=== PATIENT | female | born 1950 | race Two or more races ===

== ENCOUNTER 2022-04-18 20:29 | Outpatient (CLI) | payer MEDICARE, OTHER | END 2022-04-18 20:30 | disposition critical access hospital (66) | LOC: EMS 20:29 | DX: R42 Dizziness and giddiness (principal); R11.2 Nausea with vomiting, unspecified; R51.9 Headache, unspecified; F41.9 Anxiety disorder, unspecified | CPT/HCPCS: A0425; A0427 ==

== ENCOUNTER 2022-04-18 20:53 | Emergency (ER) | payer MEDICARE, OTHER ==
--- NOTE | 2022-04-18 21:31 | ED Physician Documentation ---
PD HPI HEADACHE - Stated complaint Stated Complaint: VERTIGO/HERRON - Chief complaint Chief Complaint: Neuro - Additional information Additional information: Patient is 71-year-old female presenting today with chief complaint of dizziness and headache. His symptoms began earlier today. Reports has had brief intermittent episodes of similar symptoms but never ones that are this persistent. Endorses for history of migraine headache disorder. Denies any recent upper respiratory tract infections, tinnitus, hearing loss, changes in medications. Denies any focal or lateralizing neurologic deficits. Review of Systems Ten Systems: 10 systems reviewed and negative Neurologic: reports: Headache, Other (Dizzy) PD PAST MEDICAL HISTORY - Present Medications Home Medications: Ambulatory Orders Medication Instructions Recorded Confirmed Meclizine HCl [Antivert] 25 mg PO TID #30 tab.chew 04/18/22 - Allergies Allergies/Adverse Reactions: Allergies Allergy/AdvReac Type Severity Reaction Status Date / Time Penicillins Allergy Hives Verified 04/18/22 21:01 PD ED PE NORMAL - Vitals Vital signs reviewed: Yes - General General: Alert and oriented X 3 - HEENT HEENT: Atraumatic - Neck Neck: Supple, no meningeal sign - Cardiac Cardiac: RRR - Respiratory Respiratory: No respiratory distress - Abdomen Abdomen: Normal bowel sounds - Female Female : Deferred - Rectal Rectal: Deferred - Derm Derm: Normal color - Extremities Extremities: No deformity - Neuro Neuro: Alert and oriented X 3, 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, No motor deficit, No sensory deficit, Normal speech, Other (Elicitable leftward horizontal nystagmus.) Results - Vitals Vitals: Vital Signs - 24 hr 04/18/22 04/18/22 21:01 21:11 Temperature 36.5 C 36.5 C Heart Rate 74 74 Respiratory 16 16 Rate Blood Pressure 160/80 H 160/80 H O2 Saturation 98 98 Oxygen O2 Source Room air - EKG (time done) 2133 Rate: Rate (enter#) (72) Rhythm: NSR [place]: Normal Intervals: Normal NE QRS: Normal Ischemia: Normal ST segments Computer interpretation: Disagree with computer - Labs Labs: Laboratory Tests 04/18/22 04/18/22 04/18/22 21:40 21:40 21:40 WBC 6.1 RBC 4.96 Hgb 13.3 Hct 41.4 MCV 83.5 MCH 26.8 L MCHC 32.1 RDW 12.0 Plt Count 202 MPV 11.1 H Neut # (Auto) 3.8 Lymph # (Auto) 1.8 [place] # (Auto) 0.4 Eos # (Auto) 0.1 Baso # (Auto) 0.0 Absolute Nucleated RBC 0.00 Nucleated RBC % 0.0 PT 10.7 INR 0.9 Sodium 141 Potassium 3.9 Chloride 102 Carbon Dioxide 27 Anion Gap 12.0 BUN 17 Creatinine 1.1 H Estimated GFR (MDRD) 49 L Glucose 149 H Lactic Acid Calcium 9.3 Magnesium 2.2 Total Bilirubin 0.5 AST 21 ALT 18 Alkaline Phosphatase 60 Total Protein 7.1 Albumin 4.3 Globulin 2.8 Albumin/Globulin Ratio 1.5 Lipase 67 H 04/18/22 21:40 WBC RBC Hgb Hct MCV MCH MCHC RDW Plt Count MPV Neut # (Auto) Lymph # (Auto) [place] # (Auto) Eos # (Auto) Baso # (Auto) Absolute Nucleated RBC Nucleated RBC % PT INR Sodium Potassium Chloride Carbon Dioxide Anion Gap BUN Creatinine Estimated GFR (MDRD) Glucose Lactic Acid 2.7 H Calcium Magnesium Total Bilirubin AST ALT Alkaline Phosphatase Total Protein Albumin Globulin Albumin/Globulin Ratio Lipase PD MEDICAL DECISION MAKING - ED course Complexity details: reviewed results, d/w patient, d/w family ED course: Patient is 71-year-old female presenting to the emergency department with persistent vertigo. Afebrile, hemodynamically stable. Nonfocal nonlateralizing neurologic exam. Elicitable leftward nystagmus on exam. Nothing in her presentation is eminently of concern for central vertigo or posterior circ ulation issue. Nevertheless did obtain head CT which was negative for acute findings. Patient was given Compazine, IV hydration, Benadryl here in the emergency department with significant symptomatic relief. Will discharge on ongoing course of meclizine. Encourage careful follow-up with primary care. Patient lives in the [facility] and I will defer referral to ENT as needed to her primary care doctor as I am unfamiliar with ENT services in the greater [place] area. Otherwise clear return precautions and follow-up instructions given prior to discharge. Departure - Departure Disposition: 01 Home, Self Care Clinical Impression: Vertigo Instructions: ED Vertigo Unspecified Prescriptions: Meclizine HCl [Antivert] 25 mg PO TID #30 tab.chew Comments: Thank you for allowing us to care for you today at [facility]. Today in the emergency department your evaluated for any possible life- threatening medical emergency. All the testing performed in the emergency department including your lab work, EKG and the CT scan performed of your head were all very reassuring. There are many potential causes of vertigo such as which you are experiencing. The most common cause in the lung that I think is most likely in your case tested with calcifications in the inner ear. I will be discharging this medications to help with your symptoms. Please make a follow-up appoint with your primary care doctor soon as possible. In rare instances persistent or recurrent episodes of vertigoDo benefit from follow-up with an ears nose and throat specialist. If it anytime you develop any new or worsening symptoms or if you develop any focal or lateralizing neurologic signs such as facial droop, speech difficulties, discoordination or weakness localizing to one side of the body please return to the emergency department.
[2022-04-18 21:46] LABS: BASOPHILS % (AUTO) 0.7 %; EOSINOPHILS # (AUTO) 0.1 10^3/uL (0.0-0.7); EOSINOPHILS % (AUTO) 1.3 %; HCT - HEMATOCRIT 41.4 % (37.0-47.0); HGB - HEMOGLOBIN 13.3 g/dL (12.0-16.0); LYMPHOCYTES # (AUTO) 1.8 10^3/uL (1.5-3.5); MEAN CORPUSCULAR HEMOGLOBIN 26.8 pg (27.0-31.0); MEAN CORPUSCULAR HGB CONC 32.1 g/dL (32.0-36.0); MEAN CORPUSCULAR VOLUME 83.5 fL (81.0-99.0); MEAN PLATELET VOLUME 11.1 fL (7.9-10.8); MONOCYTES # (AUTO) 0.4 10^3/uL (0.0-1.0); MONOCYTES % (AUTO) 6.1 %; NEUTROPHILS # (AUTO) 3.8 10^3/uL (1.5-6.6); NEUTROPHILS % (AUTO) 62.6 %; PLT - PLATELET COUNT 202 10^3/uL (130-450); RED BLOOD COUNT 4.96 10^6/uL (4.20-5.40); WHITE BLOOD COUNT 6.1 x10^3/uL (4.8-10.8)
[2022-04-18 21:53] LABS: INR 0.9 (0.8-1.2); PT - PROTHROMBIN TIME 10.7 secs (9.9-12.6)
[2022-04-18] MEDS ORDERED: PROCHLORPERAZINE 10 MG/2 ML VIAL IVP STA (21:54)
[2022-04-18] MEDS ORDERED: diphenhydrAMINE INJ 50 MG/ML VIAL IVP STA (21:55)
[2022-04-18] MEDS ORDERED: DEXAMETHASONE 10 MG/ML VIAL PO STA (21:55)
[2022-04-18] MEDS ORDERED: CHERRY SYRUP 10 ML UDC PO ONE (21:55)
[2022-04-18 22:02] LABS: ALBUMIN 4.3 g/dL (3.2-5.5); ALBUMIN/GLOBULIN RATIO 1.5 (1.0-2.2); BILIRUBIN,TOTAL 0.5 mg/dL (0.2-1.0); CALCIUM 9.3 mg/dL (8.5-10.3); CREATININE 1.1 mg/dL (0.4-1.0); MAGNESIUM 2.2 mg/dL (1.7-2.8); POTASSIUM 3.9 mmol/L (3.5-5.0); TOTAL PROTEIN 7.1 g/dL (6.7-8.2)
[2022-04-18] MEDS ORDERED: SODIUM CHLORIDE 0.9% 1,000 ML IV STA (22:08)
--- NOTE | 2022-04-18 22:53 | CT Report ---
PROCEDURE: HEAD WO INDICATIONS: Acute onset vertigo. TECHNIQUE: Noncontrast 4.5 mm thick angled axial sections acquired from the foramen magnum to the vertex. For r adiation dose reduction, the following was used: automated exposure control, adjustment of mA and/or kV according to patient size. COMPARISON: None. FINDINGS: Image quality: Excellent. CSF spaces: Basal cisterns are patent. No extra-axial fluid collections. Ventricles are normal in size and shape. Brain: No midline shift. No intracranial masses or hemorrhage. Curran-white matter interface is norm al. Skull and face: Calvarium and visualized facial bones are intact, without suspicious lesions. Sinuses: Visualized sinuses and mastoids are clear. IMPRESSION: No acute intracranial finding. Reviewed by: Ismael Tinajero MD on 04/18/2022 10:51 PM PDT Approved by: Ismael Tinajero MD on 04/18/2022 10:51 PM PDT Station ID: [id number]
[2022-04-18 23:13] VITALS: BP 149/75
== END 2022-04-18 23:21 | disposition home or self-care (01) ==
LOC: ED 20:53
DX: R42 Dizziness and giddiness (principal)
CPT/HCPCS: 36415; 70450; 80053; 83605; 83690; 83735; 85025; 85610; 93005; 96374; 96375; 99283; 99284; A9270; J1200